=== PATIENT | female | born 1995 | race Two or more races ===

== ENCOUNTER 2017-10-25 07:56 | Emergency (ER) | payer MEDICAID ==
[~2017-10-25] VITALS: Ht 149.9 cm; Wt 74.4 kg
[2017-10-25 08:10] VITALS: Ht 149.9 cm; Wt 74.4 kg
[2017-10-25 08:15] VITALS: BP 132/76
== END 2017-10-25 10:10 | disposition home or self-care (01) ==
LOC: ED
DX: M10.9 Gout, unspecified (principal)
CPT/HCPCS: Q0092

== ENCOUNTER 2017-12-23 21:21 | Emergency (ER) | payer OTHER ==
[~2017-12-23] VITALS: Ht 124.5 cm; Wt 74.6 kg
[2017-12-23 22:17] LABS: BASOPHIL % 0.5 % (0-2); PLATELET COUNT 361 x10^3mcL (130-400); RED CELL DISTRIBUTION WIDTH 14.1 % (11.5-14.5)
[2017-12-23 23:01] LABS: CALCIUM 8.4 mg/dL (8.5-10.1); CARBON DIOXIDE 25.5 mmol/L (21-32); CHLORIDE SERUM 105 mmol/L (98-107); CREATININE SERUM 0.7 mg/dL (0.6-1.0); GFR1 > 60 mL/min; GLUCOSE SERUM 87 mg/dL (74-106); POTASSIUM SERUM 3.3 mmol/L (3.5-5.1); SODIUM SERUM 138 mmol/L (136-145)
[2017-12-23 23:06] LABS: ALBUMIN 3.9 g/dL (3.4-5.0); ALKALINE PHOSPHATASE 110 U/L (46-116); ALT/SGPT 20 U/L (14-59); AST/SGOT 18 U/L (15-37); BILIRUBIN TOTAL 0.3 mg/dL (0.20-1.00); TOTAL PROTEIN, SERUM 7.6 g/dL (6.4-8.2)
[2017-12-24 00:48] VITALS: BP 121/82
== END 2017-12-24 00:48 | disposition home or self-care (01) ==
LOC: ED 21:21
PROVIDERS: Emergency Medicine
DX: N93.9 Abnormal uterine and vaginal bleeding, unspecified (principal)
CPT/HCPCS: 36415